=== PATIENT | male | born 1960 | race Caucasian/White ===

== ENCOUNTER 2025-06-13 10:56 | Outpatient (CLI) | payer MEDICARE ==
[2025-06-13 11:28] LABS: Estimated GFR - POC 97.0
== END 2025-06-13 10:57 | disposition home or self-care (01) ==
LOC: SCSMRI 10:56
PROVIDERS: ATTEND Physician Assistant Medical
DX: K70.30 Alcoholic cirrhosis of liver without ascites (principal); K76.0 Fatty (change of) liver, not elsewhere classified; K76.6 Portal hypertension
CPT/HCPCS: 36415; 74183; 82565